=== PATIENT | female | born 1995 | race Asian ===

== ENCOUNTER 2018-09-15 05:44 | Inpatient (IN) | payer MEDICAID ==
[~2018-09-15] VITALS: Ht 154.9 cm; Wt 72.0 kg
[2018-09-16 08:00] VITALS: BP 107/68
== END 2018-09-16 13:27 | disposition home or self-care (01) | DRG 807 ==
LOC: LDIP 05:44 → 2NW 12:52
PROVIDERS: ADMIT Obstetrics & Gynecology Maternal & Fetal Medicine; ATTEND Obstetrics & Gynecology Maternal & Fetal Medicine
PROC: 10E0XZZ Delivery of Products of Conception, External Approach (ICD-10-PCS; principal; 2018-09-15)
PROC: 10907ZC Drainage of Amniotic Fluid, Therapeutic from Products of Conception, Via Natural or Artificial Opening (ICD-10-PCS; 2018-09-15)
DX: O48.0 Post-term pregnancy (principal); Z37.0 Single live birth; Z3A.41 41 weeks gestation of pregnancy; O77.0 Labor and delivery complicated by meconium in amniotic fluid
CPT/HCPCS: 36415; 85025; 86850; 86900; G0378; J3010; J2590; J7120

== ENCOUNTER 2020-09-04 04:06 | Inpatient (IN) | payer MEDICAID ==
[~2020-09-04] VITALS: Ht 154.9 cm; Wt 70.0 kg
[~2020-09-04 04:06] MED LIST: FERR325T18 PO; IBUP-1222 PO; OXYC1TAB14 PO
[2020-09-04] MEDS ORDERED: NEWBORN KIT ONE (04:24)
[2020-09-04] MEDS ORDERED: OXYTOCIN 30U/ 0.9% NaCL 500ML 500 ML ONE (04:24)
[2020-09-04] MEDS ORDERED: PLEASE ENTER HEIGHT AND WEIGHT MC SCH (04:30)
[2020-09-04] MEDS ORDERED: CALCIUM CARBONATE 500 MG TAB.CHEW PO PRN (04:30)
[2020-09-04] MEDS ORDERED: TERBUTALINE 1 MG/ML, 1ML IVPush PRN (04:30)
[2020-09-04] MEDS ORDERED: LACTATED RINGERS 1,000 ML IV SCH (04:30)
[2020-09-04] MEDS ORDERED: FENTANYL PF 100 MCG/2ML IVPush PRN (04:30)
[2020-09-04] MEDS ORDERED: SODIUM CITRATE/CITRIC ACID 30 ML UDC PO PRN (04:30)
[2020-09-04] MEDS ORDERED: OXYTOCIN 30U/ 0.9% NaCL 500ML 500 ML IV ONE (04:30)
[2020-09-04] MEDS ORDERED: ALUMINUM/MAG/SIMETHICONE 30 ML UDC PO PRN (04:30)
[2020-09-04] MEDS ORDERED: TERBUTALINE 1 MG/ML, 1ML SQ PRN (04:30)
[2020-09-04] MEDS ORDERED: FENTANYL PF 100 MCG/2ML IV PRN (04:30)
[2020-09-04] MEDS ORDERED: D5%-LACTATED RINGERS 1,000 ML IV SCH (04:30)
[2020-09-04] MEDS ORDERED: SODIUM CHLORIDE FLUSH 10ML SYR IVF PRN (04:30)
[2020-09-04] MEDS ORDERED: ONDANSETRON 2MG/ML, 2ML IVPush PRN (04:30)
[2020-09-04] MEDS ORDERED: METOCLOPRAMIDE 5 MG/ML, 2ML IVPush PRN (04:30)
[2020-09-04] MEDS ORDERED: MISOPROSTOL 200 MCG TABLET ONE (04:34)
[2020-09-04] MEDS ORDERED: LIDOCAINE 1%, 20ML ONE (04:34)
[2020-09-04] MEDS ORDERED: MISOPROSTOL 200 MCG TABLET PO PRN (05:00)
[2020-09-04] MEDS ORDERED: BISACODYL 10 MG SUPP PR PRN (05:00)
[2020-09-04] MEDS ORDERED: TRANEXAMIC ACID 1,000 MG in SODIUM CHLORIDE 0.9% 100 ML IVPB ONE (05:00)
[2020-09-04] MEDS ORDERED: METHYLERGONOVINE 0.2 MG/ML IM PRN (05:00)
[2020-09-04] MEDS ORDERED: SIMETHICONE 80 MG CHEW TAB PO PRN (05:00)
[2020-09-04] MEDS ORDERED: ONDANSETRON 2MG/ML, 2ML IV PRN (05:00)
[2020-09-04] MEDS ORDERED: OXYcodone IR 5MG TABLET PO PRN (05:00)
[2020-09-04] MEDS ORDERED: OXYcodone/APAP 5/325MG TABLET PO PRN (05:00)
[2020-09-04] MEDS ORDERED: DOCUSATE 100 MG CAPSULE PO PRN (05:00)
[2020-09-04] MEDS ORDERED: IBUPROFEN 800 MG TABLET PO PRN (05:00)
[2020-09-04] MEDS ORDERED: IBUPROFEN 600 MG TABLET PO PRN (05:00)
[2020-09-04] MEDS ORDERED: OXYTOCIN 30U/ 0.9% NaCL 500ML 500 ML IV SCH (05:00)
[2020-09-04] MEDS ORDERED: ACETAMINOPHEN 325 MG TABLET PO PRN (05:00)
[2020-09-04] MEDS ORDERED: CARBOPROST TROMETHAMINE 250 MCG/ML, 1ML IM PRN (05:00)
[2020-09-04] MEDS ORDERED: GLYCERIN ADULT SUPP PR PRN (05:00)
[2020-09-04] MEDS ORDERED: METOCLOPRAMIDE 5 MG/ML, 2ML IV PRN (05:00)
[2020-09-04 05:08] VITALS: BP 130/69
[2020-09-04 05:34] LABS: BASOPHILS % (AUTO) 1 % (0-1); EOSINOPHILS % (AUTO) 0 % (1-7); LYMPHOCYTES % (AUTO) 11 % (22-44); MEAN CORPUSCULAR HEMOGLOBIN 27.2 pg (27.0-34.8); MEAN CORPUSCULAR HGB CONC 32.8 g/dL (32.4-35.8); MEAN PLATELET VOLUME 8.4 fL (7.4-10.4); MONOCYTES % (AUTO) 5 % (2-9); NEUTROPHILS % (AUTO) 83 % (42-75); PLATELET COUNT 180 x10^3/uL (130-400); RED BLOOD COUNT 4.29 x10^6/uL (3.82-5.3); RED CELL DISTRIBUTION WIDTH 15.3 % (9.6-15.2)
[2020-09-04 07:00] VITALS: BP 99/65
[2020-09-04] MEDS: PRENATAL VIT/IRON/FA 1 EACH TABLET PO SCH (09:00)
[2020-09-04 12:00] VITALS: BP 103/69
[2020-09-04 16:25] VITALS: BP 96/62
[2020-09-04 19:30] VITALS: BP 98/64
[2020-09-05 00:30] VITALS: BP 99/64
[2020-09-05 05:21] LABS: BASOPHILS % (AUTO) 0 % (0-1); EOSINOPHILS % (AUTO) 0 % (1-7); LYMPHOCYTES % (AUTO) 16 % (22-44); MEAN CORPUSCULAR HGB CONC 31.8 g/dL (32.4-35.8); MEAN PLATELET VOLUME 8.1 fL (7.4-10.4); MONOCYTES % (AUTO) 6 % (2-9); NEUTROPHILS % (AUTO) 78 % (42-75); PLATELET COUNT 172 x10^3/uL (130-400); RED CELL DISTRIBUTION WIDTH 15.4 % (9.6-15.2)
[2020-09-05 07:51] VITALS: BP 102/65
[2020-09-05] MEDS: PRENATAL VIT/IRON/FA 1 EACH TABLET PO SCH (08:22)
[2020-09-05] MEDS ORDERED: IBUP-1222 PO (09:53)
== END 2020-09-05 12:00 | disposition home or self-care (01) | DRG 806 ==
LOC: LDOP 04:06 → LDIP 04:35 → 2NW 06:41
PROVIDERS: ADMIT Obstetrics & Gynecology Maternal & Fetal Medicine; ATTEND Obstetrics & Gynecology Maternal & Fetal Medicine
PROC: 10E0XZZ Delivery of Products of Conception, External Approach (ICD-10-PCS; principal; 2020-09-04)
PROC: 10907ZC Drainage of Amniotic Fluid, Therapeutic from Products of Conception, Via Natural or Artificial Opening (ICD-10-PCS; 2020-09-04)
DX: O99.02 Anemia complicating childbirth (principal); D62 Acute posthemorrhagic anemia; Z37.0 Single live birth; Z3A.39 39 weeks gestation of pregnancy; Z20.822 Contact with and (suspected) exposure to COVID-19
CPT/HCPCS: 36415; 85025; 86592; 86850; 86900; 87635; 99285; G0378; J2590; J7120